=== PATIENT | male | born 1965 | race American Indian/Alaskan Native ===

== ENCOUNTER 2020-04-27 07:11 | Outpatient (CLI) | payer OTHER ==
[2020-04-27 09:07] LABS: Blood Urea Nitrogen 10 mg/dL (9-20)
--- NOTE | 2020-04-27 09:59 | Cat Scan Report ---
CT CHEST WITH CONTRAST INDICATION / CLINICAL INFORMATION: MAIN. 55-year-old male with provided clinical history of cavitating lesion on x-ray TECHNIQUE: Axial CT images were obtained through the chest without contrast. All CT scans at this location are p erformed using CT dose reduction for ALARA by means of automated exposure control. COMPARISON: None available. FINDINGS: NECK BASE: No significant abnormality. HEART: Multivessel coronary artery atherosclerotic calcification. Mild aortic valve calcification. THORACIC AORTA: No significant abnormality. MEDIASTINUM and KRYSTA: Mild scattered nodular attenuation in the anterior mediastinum likely represent s residual thymus. No focal enhancing lesion. No significant adenopathy. LUNGS/AIRWAYS: No acute air space or interstitial disease. No pulmonary mass or nodule. PLEURA: No significant pleural effusion. No pneumothorax. UPPER ABDOMEN: Mild contrast reflux into the IVC and hepatic veins. CHEST WALL: Multiple upper limits normal size axillary lymph nodes without evidence of pathologic mandy nopathy. SKELETAL SYSTEM: No significant abnormality. IMPRESSION: 1. No significant pulmonary abnormality. Specifically, no evidence of cavitating lesion. No recent ra diograph available for comparison. 2. Coronary artery atherosclerotic calcification and mild aortic valve calcification. 3. Mild contrast reflux into the IVC and hepatic veins which could be seen in the setting of elevated right heart pressures. Signer Name: Hector Butts MD Signed: 04/27/2020 9:55 AM Workstation Name: [id number]
== END 2020-04-27 07:12 | disposition home or self-care (01) ==
LOC: CT 07:11
PROVIDERS: ATTEND Nurse Practitioner
DX: I25.10 Atherosclerotic heart disease of native coronary artery without angina pectoris (principal); I70.0 Atherosclerosis of aorta; K76.89 Other specified diseases of liver; L98.8 Other specified disorders of the skin and subcutaneous tissue
CPT/HCPCS: 36415; 71260; 82565; 84520; Q9967